=== PATIENT | female | born 1990 | race African-American/Black ===

== ENCOUNTER → 2021-05-27 | Outpatient (CLI) | payer OTHER ==
[~2021-05-27] MED LIST: ISOVUE-370 76% 100ML VIAL As Ordered ONE
--- NOTE | 2021-05-27 14:22 | REP ---
INDICATION: INFERTILITY. COMPARISON: None. TECHNIQUE: The endometrium is cannulated by the attending major appliance assembly supervisor. Fluoroscopic guidance is provided during contrast injection and intermittent spot filming is acquired. 0.3 minutes of fluoroscopy time is utilized. FINDINGS: There is opacification of a normal shaped endometrial cavity. No filling defect or synechia is appreciatedThe isthmic and ampullary segments of right fallopian tube opacifies promptly and symmetrically. Right-sided tubal patency is documented. The left fallopian tube fills late and with increased pressure there is lymphatic contrast but no definite peritoneal spillage from the left fallopian tube. After deflation of the endocervical balloon, the uterine cavity remains normal in appearance. IMPRESSION: Patency of the right fallopian tube is documented. The left fallopian tube appears to be occluded. Otherwise unremarkable.. <Electronically signed by Helder Lacey > 05/27/21 1096
== END ==
LOC: M RADPRO 11:57
PROVIDERS: ATTEND Obstetrics & Gynecology
DX: N97.9 Female infertility, unspecified (principal)
CPT/HCPCS: 58340; 74740; Q9967

== ENCOUNTER 2022-04-14 20:36 | Emergency (ER) | payer OTHER ==
[~2022-04-14] VITALS: Ht 162.6 cm; Wt 99.7 kg
[2022-04-14] MEDS ORDERED: LEXA1TAB PO (20:44)
[2022-04-15 00:20] VITALS: BP 142/96
[2022-04-15] MEDS ORDERED: CYCLOBENZAPRINE 10MG TABLET PO ONE (01:05)
[2022-04-15] MEDS ORDERED: CEPHALEXIN 500 MG CAP PO ONE (01:10)
[2022-04-15] MEDS ORDERED: CEPH500C PO (02:03)
[2022-04-15] MEDS ORDERED: CYCL-707 PO (02:03)
== END 2022-04-15 02:17 | disposition home or self-care (01) ==
LOC: M ED 20:36
DX: L02.411 Cutaneous abscess of right axilla (principal); R07.89 Other chest pain; F33.9 Major depressive disorder, recurrent, unspecified; Z79.899 Other long term (current) drug therapy

== ENCOUNTER 2022-09-03 09:15 | Emergency (ER) | payer OTHER ==
[~2022-09-03] VITALS: Ht 165.1 cm; Wt 77.0 kg
[~2022-09-03 09:15] MED LIST changes: +CEPH500C PO; +CYCL-707 PO; -ISOVUE-370 76% 100ML VIAL As Ordered ONE; +LEXA1TAB PO
[2022-09-03] MEDS ORDERED: VITMTA PO (09:29)
[2022-09-03] MEDS ORDERED: URSO300C3 PO (09:29)
[2022-09-03] MEDS ORDERED: NS 1,000 ML IV ONE (11:45)
[2022-09-03 12:13] LABS: BASO % 0.3 % (0.0-1.0); EOS % 0.4 % (0.0-3.0); HEMATOCRIT 40.6 % (36.0-47.0); HEMOGLOBIN 12.6 g/dl (12.0-15.5); LYMPH # 1.1 10^3/uL (1.5-5.0); LYMPH % 14.4 % (24.0-44.0); MEAN CORPUSCULAR VOLUME 96.7 fl (80.0-96.0); MONO # 0.3 10^3/uL (0.0-0.8); MONO % 4.3 % (2.0-8.0); NEUTROPHILS # 6.2 10^3/uL (1.5-8.5); NEUTROPHILS % 80.3 % (36.0-66.0); PLATELET COUNT, AUTOMATED 295 10^3/uL (150-450); WHITE BLOOD COUNT 7.8 10^3/uL (4.0-10.0)
[2022-09-03 12:50] LABS: CK-MB VALUE MASS < 1.0 NG/ML (<3.6); CPK CREATINE PHOSPHOKINASE 77 U/L (26-192)
[2022-09-03 12:56] LABS: BLOOD UREA NITROGEN 7 MG/DL (7-18); CALCIUM LEVEL 9.6 MG/DL (8.5-10.1); CARBON DIOXIDE LEVEL 26 MEQ/L (21-32); CHLORIDE LEVEL 110 MEQ/L (98-107); CREATININE FOR GFR 0.89 MG/DL (0.55-1.30); FREE T4 1.04 NG/DL (0.76-1.46); GLOMERULAR FILTRATION RATE > 60.0 (>60); GLUCOSE, FASTING 85 MG/DL (70-100); POTASSIUM SERUM 3.8 MEQ/L (3.5-5.1); SODIUM LEVEL 141 MEQ/L (136-145); THYROID STIMULATING HORMONE 0.867 uIU/ML (0.358-3.740)
[2022-09-03 14:30] VITALS: BP 140/92
[2022-09-04 09:53] LABS: VITAMIN B12 LEVEL 747 PG/ML (247-911)
== END 2022-09-03 14:28 | disposition home or self-care (01) ==
LOC: M ED 09:15
DX: E16.1 Other hypoglycemia (principal); F43.10 Post-traumatic stress disorder, unspecified; Z98.84 Bariatric surgery status

== ENCOUNTER 2022-09-25 12:41 | Emergency (ER) | payer OTHER ==
[~2022-09-25] VITALS: Ht 165.1 cm; Wt 71.4 kg
[~2022-09-25 12:41] MED LIST changes: +URSO300C3 PO; +VITMTA PO
[2022-09-25 12:42] VITALS: BP 144/92
[2022-09-25 18:06] LABS: BASO % 0.4 % (0.0-1.0); EOS # 0.1 10^3/uL (0.0-0.5); EOS % 1.2 % (0.0-3.0); HEMATOCRIT 38.7 % (36.0-47.0); HEMOGLOBIN 12.1 g/dl (12.0-15.5); LYMPH # 2.5 10^3/uL (1.5-5.0); LYMPH % 27.4 % (24.0-44.0); MEAN CORPUSCULAR HEMOGLOBIN 30.3 pg (27.0-33.0); MEAN CORPUSCULAR HGB CONC 31.3 g/dl (32.0-36.5); MONO # 0.7 10^3/uL (0.0-0.8); MONO % 7.5 % (2.0-8.0); NEUTROPHILS # 5.7 10^3/uL (1.5-8.5); NEUTROPHILS % 63.2 % (36.0-66.0); PLATELET COUNT, AUTOMATED 265 10^3/uL (150-450); RED BLOOD COUNT 3.99 10^6/uL (4.00-5.40); WHITE BLOOD COUNT 9.1 10^3/uL (4.0-10.0)
[2022-09-25] MEDS ORDERED: ROLLMIS8 XX (20:46)
[2022-09-25] MEDS ORDERED: [UNRECOGNIZED DRUG - SUPPLY] (20:46)
== END 2022-09-25 20:51 | disposition home or self-care (01) ==
LOC: M ED 12:41
DX: M21.371 Foot drop, right foot (principal); S84.11XA Injury of peroneal nerve at lower leg level, right leg, initial encounter; M51.36 Other intervertebral disc degeneration, lumbar region; Z79.899 Other long term (current) drug therapy

== ENCOUNTER 2023-10-30 08:23 | Emergency (ER) | payer OTHER ==
[~2023-10-30] VITALS: Ht 162.6 cm; Wt 63.6 kg
[~2023-10-30 08:23] MED LIST changes: +ROLLMIS8 XX; +[UNRECOGNIZED DRUG - SUPPLY]
[2023-10-30] MEDS ORDERED: KETOROLAC 60MG 2ML VIAL IM ONE (11:20)
[2023-10-30 13:11] VITALS: BP 139/85; TEMP 97.6; O2SAT 100
== END 2023-10-30 13:13 | disposition home or self-care (01) ==
LOC: M ED 08:23
DX: S89.91XA Unspecified injury of right lower leg, initial encounter (principal); X50.0XXA Overexertion from strenuous movement or load, initial encounter; Y99.0 Civilian activity done for income or pay; Z98.84 Bariatric surgery status; Z79.899 Other long term (current) drug therapy
CPT/HCPCS: 72131; 73564; 96372; 99284; J1885

== ENCOUNTER → 2023-12-01 | Outpatient (CLI) | payer OTHER | LOC: M RAD 09:08 | PROVIDERS: ATTEND Physician Assistant | DX: S89.91XA Unspecified injury of right lower leg, initial encounter (principal); X58.XXXA Exposure to other specified factors, initial encounter; Y92.9 Unspecified place or not applicable; Y93.9 Activity, unspecified; Y99.0 Civilian activity done for income or pay ==

== ENCOUNTER 2023-12-24 08:50 | Outpatient (RCR) | payer OTHER | END 2023-12-26 | LOC: M PT 08:50 | PROVIDERS: ATTEND Physician Assistant | DX: M67.51 Plica syndrome, right knee (principal) ==

== ENCOUNTER 2024-01-16 13:22 | Outpatient (RCR) | payer OTHER | END 2024-01-24 | LOC: M PT 13:22 | PROVIDERS: ATTEND Physician Assistant | DX: M67.51 Plica syndrome, right knee (principal) ==

== ENCOUNTER 2024-01-30 13:21 | Outpatient (RCR) | payer OTHER | END 2024-02-24 | LOC: M PT 13:21 | PROVIDERS: ATTEND Physician Assistant | DX: M67.51 Plica syndrome, right knee (principal) ==